=== PATIENT | female | born 1955 | race Caucasian/White ===

== ENCOUNTER 2023-04-30 06:24 | Emergency (ER) | payer MEDICARE, SELFPAY ==
[2023-04-30] VITALS (33 sets, daily range): BP systolic 116–173; BP diastolic 75–104; PULSE 68–120; RESP 15–29; TEMP 36.8; O2SAT 97–100
--- NOTE | ~2023-04-30 | CT_ITS ---
EXAMINATION: CTA brain carotid DATE: 04/30/2023 09:07 [employer] INDICATION: Altered mental status TECHNIQUE: Computed tomographic angiography (CTA) of the head was performed without and with 100 mL O mnipaque-350 intravenous contrast. CTA of the neck was performed with intravenous contrast. The dose- length product was 975.69 mGy-cm. Maximum intensity projection and volume rendered 3D-reconstructions were created by the technologist on a separate workstation. Automated exposure control and iterative reconstruction technique were employed. COMPARISON: CT dated 04/30/2023. FINDINGS: HEAD CTA: The anterior, middle and posterior cerebral arteries are symmetric. No aneurysm, significan t stenosis or occlusion there is a small filling defect in the basilar artery, suspicious for soft at herosclerotic plaque, image [id number]. There is a dominant left vertebral artery. NECK CTA: There is atherosclerotic plaque at the left carotid bifurcation without significant stenosi s. There is 0% stenosis of the proximal right internal carotid artery relative to normal distal artery l umen diameter (NASCET criteria). There is less than 10% stenosis of the proximal left internal caroti d artery relative to normal distal artery lumen diameter. Lung apices are normal. IMPRESSION: 1: Small intraluminal filling defect of the basilar artery, suspicious for soft atherosclerotic plaq ue. No evidence for intracranial arterial occlusion, significant stenosis or aneurysm. 2: No significant atherosclerotic change of the carotid arteries. Reviewed, dictated and finalized at location A. R [employer] IMPRESSION: 1: Small intraluminal filling defect of the basilar artery, suspicious for sof t atherosclerotic plaque. No evidence for intracranial arterial occlusion, sign ificant stenosis or aneurysm. 2: No significant atherosclerotic change of the carotid arteries.
--- NOTE | ~2023-04-30 | XR_ITS ---
XR chest 1V portable 04/30/2023 07:48 Indication: Altered mental status. Vomiting. Procedure: AP portable chest Comparison: Comparison to multiple prior studies sequentially, with oldest reviewed study dated 06/2004. Findings: Cardiomegaly. Elevation the right diaphragm suggesting phrenic nerve paralysis. Interval pl acement of right-sided catheter, likely ventriculoperitoneal shunt. There are cholecystectomy clips. No focal air space disease, pulmonary edema, pleural effusion or suspected pneumothorax. Impression: 1: No acute cardiopulmonary disease. Reviewed, dictated and finalized at location A. 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
--- NOTE | ~2023-04-30 | CT_ITS ---
EXAMINATION: CT BRAIN W/O DATE: 04/30/2023 06:38 INDICATION: Altered level of consciousness TECHNIQUE: Computed tomography (CT) of the head was performed without intravenous contrast. The dose- length product was 605.33 mGy-cm. Automated exposure control and iterative reconstruction technique w ere employed. COMPARISON: No prior studies for comparison. FINDINGS: Normal brain parenchymal volume for age. Normal edgar-white differentiation. No acute intrac ranial hemorrhage, infarction, mass or mass effect. There is a right frontal ventriculostomy catheter , tip in the frontal horn left lateral ventricle. No ventriculomegaly or midline shift. Midline sagittal images demonstrate a normal corpus callosum, c raniovertebral junction and sella turcica. Basilar cisterns are patent. Paranasal sinuses and mastoids are pneumatized. No depressed skull fractures. IMPRESSION: 1. No acute intracranial abnormality. Reviewed, dictated and finalized at location A. HOUSE SHIPPING CLERK
--- NOTE | 2023-04-30 06:44 | ECG_ITS ---
Measurements Intervals [place] Rate: 95 P: 67 AR: 174 QRS: 28 QRSD: 83 T: 53 QT: 356 QTc: 448 Interpretive Statements SINUS RHYTHM NONSPECIFIC ST & T-WAVE ABNORMALITY- ANTEROLATERAL LEADS BASELINE ARTIFACT- V5 BORDERLINE ECG NO PREVIOUS ECG AVAILABLE FOR COMPARISON Electronically Signed On 04-30-2023 8:15:18 [employer] by Deshawn Garcia D.O.
[2023-04-30 07:12] LABS: Basophils Percent Auto 0.2 % (0.2-1.2); Eosinophils Percent Auto 0.3 % (0-4.4); Hematocrit 34.4 % (37.0-47.0); Hemoglobin 11.3 g/dL (12.0-15.0); Immature Granulocyte Absolute 0.06 K/mm3 (0.00-0.031); Immature Granulocyte Percent A 0.6 % (0-0.5); Lymphocytes Absolute Auto 0.72 K/mm3 (0.9-3.2); Mean Corpuscular HGB Conc 32.8 g/dl (32-36); Mean Corpuscular Hemoglobin 29.1 pg (26-34); Mean Corpuscular Volume 88.7 fl (80-100); Mean Platelet Volume 8.9 fl (7.4-10.4); Monocytes Absolute Auto 0.7 K/mm3 (0.1-0.6); Monocytes Percent Auto 6.4 % (2.6-8.5); Neutrophils Absolute Auto 8.8 K/mm3 (1.3-6.7); Neutrophils Percent Auto 85.5 % (45.5-73.1); Platelet Count Result 265 k/mm3 (150-375); Red Blood Count 3.88 M/mm3 (4.2-5.4); Red Cell Distribution Width 15.9 % (11.5-14.5); White Blood Count 10.3 K/mm3 (4.5-10.0)
--- NOTE | 2023-04-30 07:16 | ED.GENADULT ---
HPI - General Adult General Chief complaint: Neuro Symptoms/Deficit Stated complaint: altered LOC Time Seen by Provider: 04/30/23 06:55 History of Present Illness HPI narrative: 67-year-old female presenting to the emergency department for evaluation of altered mental status. states that the patient does have history of a ONLINE MARKETING MANAGER shunt placed in 2012 for adult onset hydrocephalus. This was initially placed when she was in [facility]. Three months ago patient had a ONLINE MARKETING MANAGER shunt issue a [place] and had a ONLINE MARKETING MANAGER shunt replaced there. Patient has had previous issues of altered mental status or secondary to RSV. states that yesterday morning the patient started having altered mental status that worsened throughout the course the day. Related Data Allergies Allergy/AdvReac Type Severity Reaction Status Date / Time cephalexin Allergy Unknown Verified 08/13/20 15:40 dog dander Allergy Unknown Verified 08/13/20 15:40 grass pollen Allergy Unknown Verified 08/13/20 15:40 lisinopril Allergy Unknown cough Verified 08/13/20 15:40 mold Allergy Unknown Verified 08/13/20 15:40 NSAIDS (Non-Steroidal Allergy Unknown Verified 08/13/20 15:40 Anti-Inflamma Review of Systems Review of Systems: All systems reviewed & are unremarkable except as noted in HPI and below Exam Narrative: APPEARANCE: Somnolent responds to voice HEAD: normocephalic, atraumatic. EYES: PERRLA/EOMI, conjunctivae clear. NOSE: Normal no drainage EARS:TMS clear with good light reflex. THROAT: Pharynx clear, no exudate. NECK: Supple. No adenopathy, no masses. RESPIRATORY: Airway patent, respirations nonlabored. Clear to auscultation bilaterally, no rales, rhonchi, wheezing. CARDIOVASCULAR: Regular rate and rhythm without murmurs rubs or gallops. ABDOMINAL: Soft, nontender, nondistended, normal bowel sounds MUSCULOSKELETAL: Moves all extremities. Strength/ROM intact, No edema, No calf tenderness. NEURO: Alert. Cranial nerves II through XII intact. Grossly SKIN: Warm, dry. Normal Color Course Course Emergency Course: 67-year-old female presenting to the emergency department for evaluation of altered mental status. Patient began having increased confusion yesterday and it progressed at the day today. Patient is afebrile with a minor leukocytosis of 10.3 and a stable hemoglobin of 10.3. No acute abnormalities on the ABG and no acute abnormalities on the CMP. Patient did test positive for opiates but patient was negative and influenza RSV and COVID CT and CTA showed no acute abnormalities. I discussed the case with Neurosurgery and they recommended transfer to higher level of care. Family prefers to go to [facility]. Case was discussed with Neurosurgery at [facility] and patient was accepted for an ED to ED transfer. Patient's family was updated on the plan for transfer. Patient was stable at time of transfer. Vital Signs Vital signs: Vital Signs Temperature 98.2 F 04/30/23 06:39 Pulse Rate 98 04/30/23 06:39 Respiratory Rate 23 H 04/30/23 06:39 Blood Pressure 154/85 H 04/30/23 06:39 Pulse Oximetry 100 04/30/23 06:39 Oxygen Delivery Room Air 04/30/23 06:39 Temperature 98.2 F 04/30/23 06:39 Pulse Rate 100 04/30/23 12:40 Respiratory Rate 19 04/30/23 12:40 Blood Pressure 166/85 H 04/30/23 12:40 Pulse Oximetry 99 04/30/23 12:40 Oxygen Delivery Room Air 04/30/23 06:39 Medical Decision Making Differential Diagnosis Differential Diagnosis: Urinary tract infection, pneumonia, COVID, influenza, RSV, ONLINE MARKETING MANAGER shunt malfunction Vital Signs Vital Signs: Vital Signs Temperature 98.2 F 04/30/23 06:39 Pulse Rate 98 04/30/23 06:39 Respiratory Rate 23 H 04/30/23 06:39 Blood Pressure 154/85 H 04/30/23 06:39 Pulse Oximetry 100 04/30/23 06:39 Oxygen Delivery Room Air 04/30/23 06:39 Temperature 98.2 F 04/30/23 06:39 Pulse Rate 100 04/30/23 12:40 Respiratory Rate 19 04/30/23 12:40 Blood Pr
[2023-04-30 07:21] LABS: Alanine Aminotransferase 12 U/L (6-35); Albumin Level 3.9 g/dL (3.5-5.1); Alkaline Phosphatase 83 U/L (38-126); Anion Gap 8 mmol/L (8-16); Aspartate Amino Transferase 24 U/L (14-36); Bilirubin,Total 0.6 mg/dL (0.2-1.3); Blood Urea Nitrogen 15 mg/dL (7-17); Calcium 9.2 mg/dL (8.4-10.2); Carbon Dioxide 21 mmol/L (22-30); Chloride 114 mmol/L (98-107); Estimated CRCL calculation 48 ml/min; Estimated Glomerular Filt Rate > 60; Glucose 124 mg/dL (65-110); Potassium 3.5 mmol/L (3.4-5.0); Sodium 143 mmol/L (137-145)
[2023-04-30 07:23] LABS: INR 1.1; Prothrombin Time 15.1 Seconds (11.1-14.7)
[2023-04-30 07:24] LABS: Partial Thromboplastin Time 32.7 SECONDS (22.3-36.8)
[2023-04-30 07:35] LABS: Influenza A QL RT-PCR Negative (Negative); Influenza B QL RT-PCR Negative (Negative); RSV RNA, RT-PCR Negative (Negative); SARS-CoV-2 RNA PCR Negative (Negative)
[2023-04-30 08:08] LABS: Alveolar/Arterial O2 Gradient 38.1 mmHg; Base Excess ABG -3.9 mEq/l (+/-2.0); Carboxyhemoglobin 1.3 % THb (0-2.0); Fractional Inspired Oxygen 21 %; HCO3 ABG 20.2 mEq/l (22.0-26.0); Methemoglobin ABG 0.3 %THb (0-1.5); Oxygen Content ABG 15.1 %vol (16.0-22.0); Oxygen Saturation ABG 94.6 % (95.0-100.0); Oxyhemoglobin 92.2 % THb (90.0-100.0); PCO2 ABG 33.3 mmHg (35.0-45.0); PO2 ABG 71.8 mmHg (80.0-100.0); PO2 FiO2 Ratio Arterial Blood 3.42 %; Reduced Hemoglobin 6.2 %THb (0-5.0); Total Hemoglobin 11.6 g/dL (12.0-18.0)
[2023-04-30 08:10] LABS: Device ROOM AIR; Modified Allen's Test Pass; Site Drawn LEFT RADIAL
--- NOTE | 2023-04-30 08:15 | PC.NURSE ---
called lab at 0711 to add on ESR, CRP, and procalcitonin - called lab at 0812 to check the status of these results
--- NOTE | 2023-04-30 08:25 | PC.NURSE ---
Patient had emesis x 1. EDP made aware. VORB for 10mg reglan IVP.
[2023-04-30 08:26] LABS: Erythrocyte Sedimentation Rate 26 mm/hr (0-20)
[2023-04-30 08:33] LABS: CRP 6.3 mg/dL (<1.0)
[2023-04-30] MEDS: METOCLOPRAMIDE HCL INJ 10 MG/2 ML VIAL IV PUSH (08:33)
[2023-04-30 08:46] LABS: Procalcitonin 0.1 ng/mL
[2023-04-30 08:53] LABS: Appearance Urine Clear (Clear); Bilirubin Urine Negative (Negative); Blood Urine Negative (Negative); Color Urine Yellow (Yellow); Glucose Urine UA Negative (Negative); Ketones Urine Negative (Negative); Leukocyte Esterase Ur Negative LEU/UL (Negative); Nitrate Urine Negative (Negative); Protein Urine Negative (Negative); Specific Grav Ur 1.007 (1.001-1.035); Urobilinogen Urine 0.2 mg/dL (<2.0); pH Urine 5.5 (5.0-9.0)
[2023-04-30 08:56] LABS: Add Urine Microscopic? NO
[2023-04-30 09:05] LABS: Amphetamine Screen Urine Negative (Negative); Barbiturate Screen Urine Negative (Negative); Benzodiazepines Screen Urine Negative (Negative); Cannabinoid Screen Urine Negative (Negative); Cocaine Screen Urine Negative (Negative); Methadone Screen Urine Negative (Negative); Opiate Screen Urine Positive (Negative); Phencyclidine Screen Urine Negative (Negative)
[2023-04-30] MEDS: SODIUM CHLORIDE 0.9% IV 1,000 ML 999 ML IV CONT ×2 (11:54→12:27)
--- NOTE | 2023-04-30 12:00 | PC.NURSE ---
Patient had emesis x 1. EDP VORB for 4mg zofran.
[2023-04-30] MEDS: ONDANSETRON INJ 4 MG/2 ML VIAL IV PUSH (12:27)
== END 2023-04-30 13:21 | disposition short-term general hospital (02) ==
PROVIDERS: Emergency Medicine; Emergency Provider Emergency Medicine
DX: R41.82 Altered mental status, unspecified (principal); Z11.52 Encounter for screening for COVID-19; G91.9 Hydrocephalus, unspecified; Z98.2 Presence of cerebrospinal fluid drainage device; R94.31 Abnormal electrocardiogram [ECG] [EKG]
CPT/HCPCS: 36415; 36600; 70450; 70496; 70498; 71045; 80053; 80307; 81003; 82375; 82805; 83050; 84145; 85025; 85610; 85652; 85730; 86140; 87637; 93005; 96361; 96374; 96375; 99285; J2405; J2765; J7030; Q9967